=== PATIENT | female | born 1950 ===

== ENCOUNTER 2025-01-20 09:34 | Inpatient (IN) | payer OTHER ==
[~2025-01-20] VITALS: Ht 154.9 cm; Wt 64.0 kg
[2025-01-20 09:47] VITALS: BP 112/43
[2025-01-20] MEDS ORDERED: ATORVASTATIN CA40 M1 PO (09:49)
[2025-01-20] MEDS ORDERED: LOSARTAN POTASS25 M1 PO (09:50)
[2025-01-20] MEDS ORDERED: BUSPAR5 MG PO (09:50)
[2025-01-20] MEDS ORDERED: LANTUS SOL100 UNIT/1 SC ×2 (09:51→14:21)
[2025-01-20] MEDS ORDERED: DULOXETINE HCL20 MG PO (09:51)
[2025-01-20 09:52] LABS: MEAN CELL VOLUME 88.9 fl (81.0-99.0); MEAN CORPUSCULAR HGB 27.7 pg (27.0-31.0); MEAN PLATELET VOLUME 9.4 fl (9.6-12.3); NUCLEATED RED BLOOD CELL 0.0 % (0.0-0.0); NUCLEATED RED BLOOD CELL 0.0 10*3/uL (0.0-0.0); PLATELET COUNT AUTOMATED 302 10*3/uL (130-400); RED CELL DISTRI WIDTH 13.0 % (0-14.5)
[2025-01-20] MEDS ORDERED: GABAPENTIN800 MG PO (09:52)
[2025-01-20] MEDS ORDERED: MISOPROSTOL100 MCG PO (09:52)
[2025-01-20] MEDS ORDERED: Mysoline50 MG PO (09:52)
[2025-01-20 09:53] LABS: MANUAL DIFF REFLEX YES
[2025-01-20] MEDS ORDERED: MELOXICAM15 MG PO (09:53)
[2025-01-20] MEDS ORDERED: TIZANIDINE HCL4 MG PO (09:53)
[2025-01-20] MEDS ORDERED: ASPIRIN CHEWABL81 MG PO (09:54)
[2025-01-20] MEDS ORDERED: ADVAIR 250/501 EA INH (09:55)
[2025-01-20] MEDS ORDERED: CLARITIN10 MG PO (09:56)
[2025-01-20] MEDS ORDERED: OMEPRAZOLE40 MG PO (09:56)
[2025-01-20] MEDS ORDERED: MAGNESIUM OXID500 MG PO (09:56)
[2025-01-20] MEDS ORDERED: OXYCODONE5 M1 PO (09:57)
[2025-01-20 10:14] LABS: BUN 25 mg/dl (9-23)
[2025-01-20 10:17] LABS: BASOPHILS 1 % (0-1); PLATELET SUFFICIENCY NORMAL (NORMAL)
[2025-01-20 10:21] LABS: BILIRUBIN Negative (Negative); BLOOD 2+ (Negative); CLARITY Turbid (Clear); COLOR Dark Yellow (Yellow); KETONE Trace (Negative); LEUKO ESTERASE 3+ (Negative); NITRITE Positive (Negative); PH 8.0 (4.5-8.0); SPECIFIC GRAVITY 1.025 (1.001-1.030); UROBILINOGEN 1.0 E.U./dl (0.0-1.0)
[2025-01-20 10:36] LABS: BACTERIA 4+; RBC 21-30 rbc/hpf (0-2); WBC TNTC wbc/hpf (0-5)
[2025-01-20] MEDS ORDERED: SODIUM CHLORIDE 0.9% 1,000 ML IV ONE ×2 (10:50→18:50)
[2025-01-20] MEDS ORDERED: BISACODYL 5 MG TAB PO PRN (11:00)
[2025-01-20] MEDS ORDERED: ACETAMINOPHEN 325 MG TAB PO PRN (11:00)
[2025-01-20] MEDS ORDERED: Ondansetron Hydrochloride 4 MG/2 ML VIAL IV PRN (11:00)
[2025-01-20] MEDS ORDERED: ACETAMINOPHEN 650 MG SUPP R PRN (11:00)
[2025-01-20] MEDS ORDERED: BISACODYL 10 MG SUPP R PRN (11:00)
[2025-01-20 13:15] VITALS: BP 107/40
[2025-01-20 13:45] VITALS: BP 119/53
[2025-01-20] MEDS ORDERED: FIASP PENF100 UNIT/1 SQ ×2 (14:15→14:16)
[2025-01-20] MEDS ORDERED: MULTIPLE VITAM1 EAC1 PO (14:18)
[2025-01-20] MEDS ORDERED: IMODIUM A-D2 M2 PO (14:19)
[2025-01-20] MEDS ORDERED: DERMACINRX LID1 EACH T (14:23)
[2025-01-20] MEDS ORDERED: MELATONIN3 M3 PO (14:25)
[2025-01-20] MEDS ORDERED: DOCUSATE S50 MG/5 ML PO (14:27)
[2025-01-20] MEDS ORDERED: TYLENOL325 M2 PO (14:28)
[2025-01-20] MEDS ORDERED: Ondansetron4 MG PO (14:29)
[2025-01-20 16:00] VITALS: BP 126/45
[2025-01-20] MEDS ORDERED: DEXTROSE 50% 25 GM/50 ML VIAL IV PRN (17:15)
[2025-01-20 20:00] VITALS: BP 124/44
[2025-01-20] MEDS ORDERED: INSULIN LISPRO 1 UNIT/0.01 ML SQ SCH (22:00)
[2025-01-20] MEDS ORDERED: busPIRone Hydrochloride 5 MG TAB PO SCH (22:00)
[2025-01-20] MEDS ORDERED: GABAPENTIN 400 MG CAP PO SCH (22:00)
[2025-01-20] MEDS ORDERED: PRIMIDONE 50 MG TAB PO SCH (22:00)
[2025-01-20] MEDS ORDERED: Insulin Glargine, Recombinan 1 UNIT/0.01 ML SC SCH (22:00)
[2025-01-21] VITALS: BP 140/49
[2025-01-21] MEDS ORDERED: OXYCODONE HCL (IR) 5 MG TAB PO SCH
[2025-01-21 05:03] LABS: ACT PARTIAL THROMBO TIME 26.8 SECONDS (20.0-32.1)
[2025-01-21 05:20] LABS: BUN 18 mg/dl (9-23); FREE T4 1.13 ng/dl (0.89-1.76); LDL CHOLESTEROL 61 mg/dL (9-159); SGPT/ALT 23 U/L (5-49)
[2025-01-21 05:22] LABS: VITAMIN D, 25-HYDROXY 24.7 ng/mL (30-100)
[2025-01-21] MEDS ORDERED: OMEPRAZOLE 20 MG CAP PO SCH (06:00)
[2025-01-21 06:24] LABS: BASO # 0.0 10*3/uL (0.0-0.1); BASO % 0.3 % (0.0-1.0); EOS # 0.1 10*3/uL (0.0-0.4); EOS % 1.0 % (1.0-4.0); MEAN CELL VOLUME 89.3 fl (81.0-99.0); MEAN CORPUSCULAR HGB 27.7 pg (27.0-31.0); MEAN PLATELET VOLUME 10.6 fl (9.6-12.3); MONO # 1.1 10*3/uL (0.1-1.0); MONO % 8.4 % (3.0-9.0); NEUT # 10.0 10*3/uL (2.3-7.9); NEUT % 74.4 % (47.0-73.0); NUCLEATED RED BLOOD CELL 0.0 % (0.0-0.0); NUCLEATED RED BLOOD CELL 0.0 10*3/uL (0.0-0.0); PLATELET COUNT AUTOMATED 259 10*3/uL (130-400); RED CELL DISTRI WIDTH 13.2 % (0-14.5)
[2025-01-21 08:00] VITALS: BP 130/62
[2025-01-21] MEDS ORDERED: LORATADINE 10 MG TAB PO SCH (10:00)
[2025-01-21] MEDS ORDERED: ASPIRIN, CHEWABLE 81 MG TAB PO SCH (10:00)
[2025-01-21] MEDS ORDERED: Insulin Glargine, Recombinan 1 UNIT/0.01 ML SC SCH (10:00)
[2025-01-21 12:00] VITALS: BP 119/49
[2025-01-21 16:00] VITALS: BP 130/46
[2025-01-21] MEDS ORDERED: ATORVASTATIN CALCIUM 40 MG TABLET PO SCH (18:00)
[2025-01-21 20:00] VITALS: BP 116/48
[2025-01-22] VITALS: BP 128/58
[2025-01-22 06:11] LABS: BASO # 0.0 10*3/uL (0.0-0.1); BASO % 0.4 % (0.0-1.0); EOS # 0.3 10*3/uL (0.0-0.4); EOS % 3.2 % (1.0-4.0); MEAN CELL VOLUME 90.3 fl (81.0-99.0); MEAN CORPUSCULAR HGB 28.0 pg (27.0-31.0); MEAN PLATELET VOLUME 10.6 fl (9.6-12.3); MONO # 1.2 10*3/uL (0.1-1.0); MONO % 12.1 % (3.0-9.0); NEUT # 4.5 10*3/uL (2.3-7.9); NEUT % 46.9 % (47.0-73.0); NUCLEATED RED BLOOD CELL 0.0 % (0.0-0.0); NUCLEATED RED BLOOD CELL 0.0 10*3/uL (0.0-0.0); PLATELET COUNT AUTOMATED 232 10*3/uL (130-400); RED CELL DISTRI WIDTH 13.2 % (0-14.5)
[2025-01-22 08:00] VITALS: BP 119/70
[2025-01-22 11:43] VITALS: BP 145/54
[2025-01-22 16:00] VITALS: BP 129/66
[2025-01-22 20:00] VITALS: BP 142/55
[2025-01-23] VITALS: BP 140/74
[2025-01-23 08:00] VITALS: BP 144/66
[2025-01-23] MEDS ORDERED: OXYCODONE5 M1 PO (10:42)
[2025-01-23] MEDS ORDERED: OMNICEF300 MG PO (10:42)
[2025-01-23 11:23] VITALS: BP 143/67
== END 2025-01-23 13:29 | DRG 871 ==
LOC: ED 09:34 → 4E 10:54 → EDHOLD 10:54 → 4E 11:04 → EDHOLD 11:08 → 4E 13:12
PROVIDERS: Internal Medicine; Registered Nurse; ADMIT Family Medicine; ATTEND Family Medicine
DX: A41.9 Sepsis, unspecified organism (principal); G93.41 Metabolic encephalopathy; N39.0 Urinary tract infection, site not specified; I10 Essential (primary) hypertension; D64.9 Anemia, unspecified; E78.5 Hyperlipidemia, unspecified; Z66 Do not resuscitate; R65.20 Severe sepsis without septic shock; R31.9 Hematuria, unspecified; E11.65 Type 2 diabetes mellitus with hyperglycemia; B96.4 Proteus (mirabilis) (morganii) as the cause of diseases classified elsewhere; Z88.1 Allergy status to other antibiotic agents; Z88.0 Allergy status to penicillin; Z88.8 Allergy status to other drugs, medicaments and biological substances; Z91.09 Other allergy status, other than to drugs and biological substances; Z79.01 Long term (current) use of anticoagulants; Z79.899 Other long term (current) drug therapy; Z79.2 Long term (current) use of antibiotics; Z79.4 Long term (current) use of insulin; Z79.82 Long term (current) use of aspirin; Z90.49 Acquired absence of other specified parts of digestive tract; Z90.710 Acquired absence of both cervix and uterus; Z87.891 Personal history of nicotine dependence; Z80.8 Family history of malignant neoplasm of other organs or systems